=== PATIENT | male | born 1970 | race American Indian/Alaskan Native ===

== ENCOUNTER 2019-01-14 08:03 | Emergency (ER) | payer SELFPAY ==
[2019-01-14 08:11] VITALS: BP 151/103
[2019-01-14] MEDS ORDERED: TORADOL IM ONE (08:58)
[2019-01-14] MEDS ORDERED: DECADRON IM ONE (08:58)
[2019-01-14] MEDS ORDERED: BANOPHEN PO ONE (08:59)
--- NOTE | 2019-01-14 09:18 | Emergency Department Report ---
ED ENT HPI - General Chief complaint: Sore Throat Stated complaint: THROAT SWOLLEN Time Seen by Provider: 01/14/19 08:27 Source: patient Mode of arrival: Ambulatory Limitations: No Limitations - History of Present Illness Initial comments: This is a 48-year-old male who presents to the ED complaining of left-sided throat pain and difficulty swallowing the past 2 days. Patient states initially began as a throat pain that has gotten worse with swelling. Patient states he has some sushi yesterday otherwise no known allergen contact. Patient denies fevers/chills/nausea vomiting for symptoms of pain. Patient states he safely painful when he swallows Any food. MD complaint: sore throat, difficulty swallowing Location: L ear (associated pain from throat), throat (left-sided) Severity: moderate Severity scale (0 -10): 5 Quality: aching Improves with: none Worsens with: swallowing Associated Symptoms: denies: cough, gum swelling, toothache, discharge from ear, rhinorrhea - Related Data Home Medications Medication Instructions Recorded Confirmed Last Taken ALBUTEROL Inhaler (OR & NICU) 2 puff IH QID PRN 10/29/15 06/17/16 06/17/16 [Proair] Albuterol *Only Ed* [Proventil 2.5 mg IH Q4H PRN 10/29/15 06/17/16 06/17/16 0.5% NEBS] AtorvaSTATin [Lipitor] 20 mg PO DAILY 10/29/15 06/17/16 06/16/16 Lisinopril [Zestril TAB] 40 mg PO QDAY 10/29/15 06/17/16 06/16/16 Previous Rx's Medication Instructions Recorded Last Taken Type Ibuprofen [Motrin] 600 mg PO Q8H PRN #30 tablet 01/14/19 Unknown Rx Nystas/Diphen/Xyl Visc/Mylanta 15 ml PO Q8H PRN #120 ml 01/14/19 Unknown Rx [Magic Mouthwash] predniSONE [Deltasone] 10 mg PO QDAY #5 tab 01/14/19 Unknown Rx Allergies Allergy/AdvReac Type Severity Reaction Status Date / Time No Known Allergies Allergy Unverified 10/29/15 04:49 ED Dental HPI - General Chief complaint: Sore Throat Stated complaint: THROAT SWOLLEN Time Seen by Provider: 01/14/19 08:27 Source: patient Mode of arrival: Ambulatory Limitations: No Limitations - Related Data Home Medications Medication Instructions Recorded Confirmed Last Taken ALBUTEROL Inhaler (OR & NICU) 2 puff IH QID PRN 10/29/15 06/17/16 06/17/16 [Proair] Albuterol *Only Ed* [Proventil 2.5 mg IH Q4H PRN 10/29/15 06/17/16 06/17/16 0.5% NEBS] AtorvaSTATin [Lipitor] 20 mg PO DAILY 10/29/15 06/17/16 06/16/16 Lisinopril [Zestril TAB] 40 mg PO QDAY 10/29/15 06/17/16 06/16/16 Previous Rx's Medication Instructions Recorded Last Taken Type Ibuprofen [Motrin] 600 mg PO Q8H PRN #30 tablet 01/14/19 Unknown Rx Nystas/Diphen/Xyl Visc/Mylanta 15 ml PO Q8H PRN #120 ml 01/14/19 Unknown Rx [Magic Mouthwash] predniSONE [Deltasone] 10 mg PO QDAY #5 tab 01/14/19 Unknown Rx Allergies Allergy/AdvReac Type Severity Reaction Status Date / Time No Known Allergies Allergy Unverified 10/29/15 04:49 ED Review of Systems ROS: Stated complaint: THROAT SWOLLEN Other details as noted in HPI Comment: All other systems reviewed and negative ED Past Medical Hx - Past Medical History Previous Medical History?: Yes Hx Hypertension: Yes Hx Psychiatric Treatment: Yes (PTSD) Hx Asthma: Yes Additional medical history: HIGH CHOLESTEROL - Surgical History Past Surgical History?: Yes Hx Coronary Stent: Yes - Social History Smoking Status: Light Tobacco Smoker Substance Use Type: Alcohol - Medications Home Medications: Home Medications Medication Instructions Recorded Confirmed Last Taken Type ALBUTEROL Inhaler (OR & NICU) 2 puff IH QID PRN 10/29/15 06/17/16 06/17/16 History [Proair] Albuterol *Only Ed* [Proventil 2.5 mg IH Q4H PRN 10/29/15 06/17/16 06/17/16 History 0.5% NEBS] AtorvaSTATin [Lipitor] 20 mg PO DAILY 10/29/15 06/17/16 06/16/16 History Lisinopril [Zestril TAB] 40 mg PO QDAY 10/29/15 06/17/16 06/16/16 History Ibuprofen [Motrin] 600 mg PO Q8H PRN #30 tablet 01/14/19 Unknown Rx Nystas/Diphen/Xyl Visc/Mylanta 15 ml PO Q8H PRN #120 ml 01/14/19 Unknown Rx [Magic Mouthwash] predniSONE [Deltasone] 10 mg PO QDAY #5 tab 01/14/19 Unknown Rx ED Physical Exam - General Limitations: No Limitations General appearance: alert, in no apparent distress - Head Head exam: Present: atraumatic, normocephalic - Eye Eye exam: Present: normal appearance - ENT ENT exam: Present: mucous membranes dry, mucous membranes moist, TM's normal bilaterally, normal external ear exam - Expanded ENT Exam Expanded Mouth exam: Present: normal external inspection Teeth exam: Present: normal inspection Throat exam: Positive: tonsillar erythema, tonsillomegaly (inflamation to left tonsil). Negative: tonsillar exudate, R peritonsillar mass, L peritonsillar mass - Neck Neck exam: Present: normal inspection, full ROM, lymphadenopathy (to the left). Absent: tenderness - Respiratory Respiratory exam: Present: normal lung sounds bilaterally. Absent: respiratory distress, wheezes, rales - Cardiovascular Cardiovascular Exam: Present: regular rate, normal rhythm. Absent: systolic murmur, diastolic murmur, rubs, gallop - GI/Abdominal GI/Abdominal exam: Present: soft, normal bowel sounds - Rectal Rectal exam: Present: deferred - Extremities Exam Extremities exam: Present: normal inspection - Back Exam Back exam: Present: normal inspection - Neurological Exam Neurological exam: Present: alert, oriented X3 - Psychiatric Psychiatric exam: Present: normal affect, normal mood - Skin Skin exam: Present: warm, dry, intact, normal color. Absent: rash ED Course Vital Signs 01/14/19 01/14/19 01/14/19 08:09 09:29 09:40 Temperature 99.5 F Pulse Rate 116 H Respiratory 16 18 18 Rate Blood Pressure 151/103 O2 Sat by Pulse 96 99 Oximetry ED Medical Decision Making - Medical Decision Making 48-year-old male presents with uvulitis/tonsillitis of the left. Patient is not in any acute distress. He is able to swallow fluids without any difficulty. Rapid strep was negative. Patient received Decadron, Pepcid, Benadryl in the ED Patient reports feeling much better after receiving medication. Patient is able to speak in clear sentences without any airway obstruction. Discussed follow-up with primary care physician as well as ENT specialist as referred. Medicines are normal patient is in no acute distress. Critical care attestation.: If time is entered above; I have spent that time in minutes in the direct care of this critically ill patient, excluding procedure time. ED Disposition Clinical Impression: Uvulitis, Acute tonsillitis Disposition: TO HOME OR SELFCARE Is pt being admited?: No Does the pt Need Aspirin: No Condition: Stable Instructions: Tonsillitis (ED), Uvulitis (ED) Additional Instructions: Make sure to follow up with the primary care physician as discussed. Take all your medications as you've been prescribed. If you have any worsening symptoms or develop new symptoms please return to ED immediately. Prescriptions: predniSONE [Deltasone] 10 mg PO QDAY #5 tab Nystas/Diphen/Xyl Visc/Mylanta [Magic Mouthwash] 15 ml PO Q8H PRN #120 ml PRN Reason: Sore Throat Ibuprofen [Motrin] 600 mg PO Q8H PRN #30 tablet PRN Reason: Pain Referrals: TRINIDAD RAMIREZ MD [Primary Care Provider] - 3-5 Days ALEJANDRO ARGUELLES MD [Staff Physician] - 3-5 Days [facility] [Provider Group] - 3-5 Days [facility] [Provider Group] - 3-5 Days Forms: Work/School Release Form(ED), Accompanied Note Time of Disposition: 10:21
== END 2019-01-14 10:55 | disposition home or self-care (01) ==
LOC: ED 08:03
DX: K12.2 Cellulitis and abscess of mouth (principal); J03.90 Acute tonsillitis, unspecified; I10 Essential (primary) hypertension; F43.10 Post-traumatic stress disorder, unspecified; J45.909 Unspecified asthma, uncomplicated; E78.00 Pure hypercholesterolemia, unspecified; F17.200 Nicotine dependence, unspecified, uncomplicated; Z79.1 Long term (current) use of non-steroidal anti-inflammatories (NSAID); Z79.899 Other long term (current) drug therapy
CPT/HCPCS: 87116; 87430; 96372; 99283; J1100; J1885; Q0163

== ENCOUNTER 2022-03-13 01:39 | Emergency (ER) | payer OTHER ==
--- NOTE | 2022-03-13 02:29 | XRay Report ---
CHEST 2 VIEWS INDICATION / CLINICAL INFORMATION: CHEST PAIN. COMPARISON: None available. FINDINGS: SUPPORT DEVICES: None. HEART / MEDIASTINUM: Heart size and mediastinal contour appear within normal limits. LUNGS / PLEURA: 3.2 x 3.6 cm retrocardiac nodular density on the lateral image is difficult to locali ze on the PA image. Lungs are otherwise clear. No pneumothorax. BONES: No significant osseous abnormality. ADDITIONAL FINDINGS: No significant additional findings. IMPRESSION: 1. Retrocardiac nodular density seen only on the lateral image. CT of the chest recommended for [facility] characterization. Otherwise no active cardiopulmonary disease. Signer Name: Gary Vivas II, MD Signed: 03/13/2022 2:25 AM Workstation Name: [id number]
[2022-03-13 02:58] LABS: Basophils % (Auto) 0.7 % (0.0-1.8); Eosinophils # (Auto) 0.3 K/mm3 (0.0-0.4); Eosinophils % (Auto) 5.2 % (0.0-4.3); Hematocrit 41.8 % (35.5-45.6); Lymphocytes # (Auto) 2.1 K/mm3 (1.2-5.4); Lymphocytes % (Auto) 32.5 % (13.4-35.0); Mean Corpuscular HGB Conc 34 % (32-34); Mean Corpuscular Volume 88 fl (84-94); Monocytes # (Auto) 0.7 K/mm3 (0.0-0.8); Monocytes % (Auto) 10.2 % (0.0-7.3); Platelet Count 258 K/mm3 (140-440); Red Blood Count 4.77 M/mm3 (3.65-5.03); Red Cell Distribution Width 14.7 % (13.2-15.2)
[2022-03-13 03:12] LABS: Alanine Aminotransferase 35 units/L (7-56); Albumin 4.8 g/dL (3.9-5); BUN/Creatinine Ratio 9; Blood Urea Nitrogen 12 mg/dL (9-20); Calcium 9.8 mg/dL (8.4-10.2); Hemolysis Index 8
--- NOTE | 2022-03-14 17:29 | Electrocardiograph Report ---
[facility] Test Date: 2022-03-13 Test Time: 01:48:46 Pat Name: WALLY NAVARRETE Department: Room: Gender: M Health Advisor: LAURI : 1970 Requested By: ARLEN AKINS Order Number: [id number] Reading MD: Ida Guerrero Measurements Intervals [place] Rate: 80 P: 76 TX: 175 QRS: 58 QRSD: 86 T: 178 QT: 392 QTc: 453 Interpretive Statements Sinus rhythm Anteroseptal infarct, old Abnormal T, consider ischemia, diffuse leads No previous ECG available for comparison Electronically Signed On 03-14-2022 17:28:52 EDT by Ida Guerrero
== END 2022-03-13 19:47 | disposition left against medical advice (07) ==
LOC: ED 01:39
DX: R07.9 Chest pain, unspecified (principal); Z53.21 Procedure and treatment not carried out due to patient leaving prior to being seen by health care provider
CPT/HCPCS: 36415; 71046; 80053; 84484; 85025; 93005